=== PATIENT | male | born 2000 | race Hispanic/Latino ===

== ENCOUNTER 2025-01-25 12:44 | Emergency (ER) | payer BC, OTHER ==
[2025-01-25] MEDS ORDERED: LIDOCAINE 1% 20 ML MDV ONE (13:12)
[2025-01-25] MEDS ORDERED: LIDOCAINE 2% W/EPI 1:200,000 MPF 20 ML VIAL IM ONE (13:13)
--- NOTE | 2025-01-25 14:53 | RAD REPORT ---
EXAM: CT brain without contrast HISTORY: TRAUMA COMPARISON: None TECHNIQUE: Multiple contiguous axial images were obtained and a CT of the brain without contrast. Sag ittal and coronal reformats were performed. FINDINGS: No evidence of hydrocephalus, intracranial hemorrhage, or extra-axial fluid collection. The brain is normal in morphology. The calvarium is intact. The visualized paranasal sinuses and mastoid air cells are essentially clear . IMPRESSION: No evidence of acute intracranial abnormality. EXAM: CT of the cervical spine without contrast HISTORY: TRAUMA COMPARISON: None TECHNIQUE: Multiple contiguous axial images were obtained in a CT of the cervical spine without contr ast. Sagittal and coronal reformats were performed. FINDINGS: The vertebral bodies demonstrate normal height and alignment. No evidence of acute fracture or subluxation.. No degenerative changes are present. No prevertebral soft tissue swelling is seen. The posterior facets are well aligned. Normal alignment of the skull base with the cervical spine is seen. The lung apices are unremarkable. IMPRESSION: No evidence of acute osseous abnormality of the cervical spine.
--- NOTE | 2025-01-25 15:28 | EDPHYS ---
Physician Documentation [facility] Name: Gustavo Pop Age: 24 yrs Sex: Male : 2000 Arrival Date: 01/25/2025 Time: 12:44 Bed 9 Private MD: ED Physician Tab Mandujano HPI: 01/25 17:07 This 24 yrs old Male presents to ER via EMS with complaints of Fall Injury, rt Head Injury With LOC-Adult. 17:07 Patient presents to the ED from [facility] after rolling off the top bunk, hitting his rt head. He did sustain a laceration to the forehead, was reportedly unconscious, unclear for how long. Denies significant pain at this time, denies other acute complaints, symptoms are moderate severity, no other aggravating or alleviating factors.. Historical: - Allergies: 12:52 No Known Allergies; me1 - Home Meds: 12:52 None [Active]; me1 - PMHx: 12:52 bowel obstruction; me1 - PSHx: 12:52 bowel resection; me1 - Immunization history:: Adult Immunizations unknown, Last tetanus immunization: > 10 years ago. - Infectious Disease History:: Denies. - Social history:: Smoking status: Patient denies any tobacco usage or history of. - Family history:: not pertinent. ROS: 17:07 Constitutional: Negative for fever, chills, and weight loss, Cardiovascular: Negative rt for chest pain, palpitations, and edema, Respiratory: Negative for shortness of breath, cough, wheezing, and pleuritic chest pain, Abdomen/GI: Negative for abdominal pain, nausea, vomiting, diarrhea, and constipation, MS/Extremity: Negative for injury and deformity, 17:07 Neuro: Positive for headache, loss of consciousness, Exam: 17:07 Head/face: 4 cm linear laceration to the left side of the forehead no foreign bodies rt identified, no other external signs of trauma. 17:23 Constitutional: This is a well developed, well nourished patient who is awake, alert, rt and in no acute distress. Neck: Trachea midline, no thyromegaly or masses palpated, and no cervical lymphadenopathy. Supple, full range of motion without nuchal rigidity, or vertebral point tenderness. No Meningismus. Chest/axilla: Normal chest wall appearance and motion. Nontender with no deformity. No lesions are appreciated. Cardiovascular: Regular rate and rhythm with a normal S1 and S2. No gallops, murmurs, or rubs. Normal PMI, no JVD. No pulse deficits. Respiratory: Lungs have equal breath sounds bilaterally, clear to auscultation and percussion. No rales, rhonchi or wheezes noted. No increased work of breathing, no retractions or nasal flaring. Abdomen/GI: Soft, non-tender, with normal bowel sounds. No distension or tympany. No guarding or rebound. No evidence of tenderness throughout. Skin: Warm, dry with normal turgor. Normal color with no rashes, no lesions, and no evidence of cellulitis. MS/ Extremity: Pulses equal, no cyanosis. Neurovascular intact. Full, normal range of motion. Vital Signs: 12:50 BP 122 / 88; Pulse 85; Resp 16; Temp 98.4; Pulse Ox 99% ; Weight 65.77 kg; Height 5 ft. me1 3 in. ; Pain 6/10; 14:05 BP 121 / 82; Pulse 84; Resp 18; Pulse Ox 100% on R/A; kj2 15:38 BP 118 / 82; Pulse 80; Resp 20; Temp 98; Pulse Ox 100% on R/A; kj2 12:50 Body Mass Index 25.69 (65.77 kg, 160.02 cm) me1 12:50 Pain Scale: Adult me1 Kimberli Coma Score: 13:11 Eye Response: spontaneous(4). Motor Response: obeys commands(6). Verbal Response: kj2 oriented(5). Total: 15. Trauma Score (Adult): 13:11 Eye Response: spontaneous(1); Verbal Response: oriented(1); Motor Response: obeys kj2 commands(2); Systolic BP: > 89 mm Hg(4); Respiratory Rate: 10 to 29 per min(4); Kimberli Score: 15; Trauma Score: 12 Laceration: 17:23 Wound Repair of 4cm ( 1.6in ) subcutaneous laceration to forehead. Linear shaped.. rt Distal neuro/vascular/tendon intact. Anesthesia: Local anesthetic administered with 2 mls of 1% lidocaine w/ Epi. Wound prep: Copious irrigation. Skin closed with 6 4-0 Prolene using simple sutures and sterile technique. Dressed with 4x4's. Patient tolerated well. MDM: 12:46 Medical Screening Exam initiated rt 17:23 Differential diagnosis: Laceration, intracranial hemorrhage, skull fracture. Data rt reviewed: vital signs, nurses notes, radiologic studies. I considered the following discharge prescriptions or medication management in the emergency department Medications were administered in the Emergency Department. See MAR. Independent interpretation of the following test(s) in the Emergency Department CT Scan: My interpretation is No intracranial hemorrhage seen on my interpretation of CT scan images. Counseling: I had a detailed discussion with the patient and/or guardian regarding the historical points, exam findings, and any diagnostic results supporting the discharge/admit diagnosis, radiology results, the need for outpatient follow up, to return to the emergency department if symptoms worsen or persist or if there are any questions or concerns that arise at home. Response to treatment: the patient's symptoms have markedly improved after treatment. 01/25 12:47 Order name: CT Head C Spine; Complete Time: 14:59 rt 01/25 12:47 Order name: Dressing - Wound; Complete Time: 13:14 rt 01/25 12:47 Order name: Gloves, Sterile; Complete Time: 13:14 rt 01/25 12:47 Order name: Setup Suture Tray; Complete Time: 13:14 rt Administered Medications: 14:05 Drug: Lidocaine-Epinephrine Infiltration -1%: (1:100,000) 5 ml 20 ml Infiltration once; kj2 to bedside {Note: administered by provider.} Volume: 20 ml; Route: Infiltration; 15:39 Follow up: Response: No adverse reaction kj2 Disposition Summary: 01/25/25 15:27 Discharge Ordered Notes: Location: Home rt Problem: new rt Symptoms: have improved rt Condition: Stable rt Diagnosis - Facial laceration rt Followup: rt - With: Private Physician - When: 7 - 10 days - Reason: Staple/Suture removal Discharge Instructions: - Discharge Summary Sheet rt - Facial Laceration rt Forms: - Medication Reconciliation Form rt - Antibiotic Education rt - Prescription Opioid Use rt - Patient Portal Instructions rt - Leadership Thank You Letter rt Signatures: Dispatcher [employer] Tab Soliman MD MD rt Carol Barclay, RN RN me1 Adalgisa Garcia RN RN kj2
--- NOTE | 2025-01-25 15:28 | ER ---
Nurse's Notes [facility] Name: Gustavo Pop Age: 24 yrs Sex: Male : 2000 Arrival Date: 01/25/2025 Time: 12:44 Bed 9 Private MD: Diagnosis: Facial laceration Presentation: 01/25 12:50 Chief complaint: EMS states: toned out to assisted for fall with +LOC and laceration to me1 forehead. Patient fell off of his bunk and hit his head on the bottom bunk or the floor. He did lose consciousness. No blood thinners. Laceration to left forehead. Pain 6/10. Coronavirus screen: Vaccine status: Patient reports being unvaccinated. Ebola Screen: No symptoms or risks identified at this time. Initial Sepsis Screen: Does the patient meet any 2 criteria? No. Patient's initial sepsis screen is negative. Does the patient have a suspected source of infection? No. Patient's initial sepsis screen is negative. Risk Assessment: Do you want to hurt yourself or someone else? Patient reports no desire to harm self or others. Onset of symptoms was January 25, 2025 at 11:20. 12:50 Method Of Arrival: EMS: [facility] [place] 12:50 Acuity: AVERY 3 me1 13:12 Mechanism of Injury: Fall out of bed. kj2 15:39 Care prior to arrival: None. Trauma event details: Injury occurred: January 25, 2025. kj2 Historical: - Allergies: 12:52 No Known Allergies; me1 - Home Meds: 12:52 None [Active]; me1 - PMHx: 12:52 bowel obstruction; me1 - PSHx: 12:52 bowel resection; me1 - Immunization history:: Adult Immunizations unknown, Last tetanus immunization: > 10 years ago. - Infectious Disease History:: Denies. - Social history:: Smoking status: Patient denies any tobacco usage or history of. - Family history:: not pertinent. Screenin:[facility] ED Fall Risk Assessment (Adult) History of falling in the last 3 months, kj2 including since admission Yes- single mechanical fall (1 pt) Confusion or Disorientation No (0 pts) Intoxicated or Sedated No (0 pts) Impaired Gait No (0 pts) Mobility Assist Device Used No (0 pt) Altered Elimination No (0 pt) Score/Fall Risk Level 0 - 2 = Low Risk Maintained a safe environment, Hourly rounding (assess needs \T\ fall precautionary measures) done. Abuse screen: Denies threats or abuse. Denies injuries from another. Nutritional screening: No deficits noted. Tuberculosis screening: No symptoms or risk factors identified. Primary Survey: 13:10 NO uncontrolled hemorrhage observed. Breathing/Chest: Spontaneous respiratory effort, kj2 equal unlabored respirations, breath sounds clear bilaterally, regular pattern, symmetrical chest rise and fall. Respiratory effort: spontaneous, Breath sounds: clear, Respiratory pattern: regular, Chest inspection: symmetrical rise and fall of the chest. Circulation: No external hemorrhage present. Regular and strong central pulse, skin warm/dry/normal color. Disability Pupils are equal, round, reactive to light and accommodation. Client is alert. Exposure/Environment: All clothing and personal items were removed. Forensic evidence collection is not deemed to be indicated at this time. Items placed in patient belonging bag. 13:11 Reassessment Breathing: Spontaneous respiratory effort, equal unlabored respirations, kj2 breath sounds clear bilaterally, regular pattern with symmetrical chest rise and fall. Circulation: No external hemorrhage noted. Regular and strong central pulse, skin warm/dry/normal color. Disability: Pupils Pupils are equal, round, reactive to light and accomodation. Alert Verbal stimuli. Assessment: 13:08 General: Appears in no apparent distress. Behavior is cooperative. Pain: Complains of kj2 pain in forehead Pain currently is 6 out of 10 on a pain scale. Neuro: Level of Consciousness is awake, alert, obeys commands, Oriented to person, place, time, situation. Cardiovascular: Patient's skin is warm and dry. Respiratory: Airway is patent Respiratory effort is unlabored. GI: No signs and/or symptoms were reported involving the gastrointestinal system. : No signs and/or symptoms were reported regarding the genitourinary system. 14:04 Reassessment: Patient appears in no apparent distress at this time. Patient and/or kj2 family updated on plan of care and expected duration. Pain level reassessed. Patient is alert, oriented x 3, equal unlabored respirations, skin warm/dry/pink. 15:38 Reassessment: Patient appears in no apparent distress at this time. Patient and/or kj2 family updated on plan of care and expected duration. Pain level reassessed. Patient is alert, oriented x 3, equal unlabored respirations, skin warm/dry/pink. Vital Signs: 12:50 BP 122 / 88; Pulse 85; Resp 16; Temp 98.4; Pulse Ox 99% ; Weight 65.77 kg; Height 5 ft. me1 3 in. ; Pain 6/10; 14:05 BP 121 / 82; Pulse 84; Resp 18; Pulse Ox 100% on R/A; kj2 15:38 BP 118 / 82; Pulse 80; Resp 20; Temp 98; Pulse Ox 100% on R/A; kj2 12:50 Body Mass Index 25.69 (65.77 kg, 160.02 cm) me1 12:50 Pain Scale: Adult me1 Kimberli Coma Score: 13:11 Eye Response: spontaneous(4). Motor Response: obeys commands(6). Verbal Response: kj2 oriented(5). Total: 15. Trauma Score (Adult): 13:11 Eye Response: spontaneous(1); Verbal Response: oriented(1); Motor Response: obeys kj2 commands(2); Systolic BP: > 89 mm Hg(4); Respiratory Rate: 10 to 29 per min(4); Kimberli Score: 15; Trauma Score: 12 ED Course: 12:46 Patient arrived in ED. iw 12:46 Tab Mandujano MD is Attending Physician. rt 12:52 Triage completed. me1 12:52 Arm band placed on Patient placed in an exam room. me1 13:07 Adalgisa Garcia, RN is Primary Nurse. kj2 13:09 Patient has correct armband on for positive identification. Bed in low position. Call kj2 light in reach. Adult w/ patient. Provided Education on: call light. 13:16 CT Head C Spine In Process Unspecified. EDMS 14:42 Patient maintains SpO2 saturation greater than 95% on room air. Thermoregulation: none kj2 needed. 15:39 No provider procedures requiring assistance completed. Patient did not have IV access kj2 during this emergency room visit. Administered Medications: 14:05 Drug: Lidocaine-Epinephrine Infiltration -1%: (1:100,000) 5 ml 20 ml Infiltration once; kj2 to bedside {Note: administered by provider.} Volume: 20 ml; Route: Infiltration; 15:39 Follow up: Response: No adverse reaction kj2 Medication: 13:12 VIS not applicable for this client. kj2 Intake: 15:40 PO: 240ml (Juice); Total: 240ml. kj2 Outcome: 15:27 Discharge ordered by . rt 15:40 Discharged to [facility] kj2 15:40 Condition: stable 15:40 Discharge instructions given to patient, [facility] staff 15:57 Patient left the ED. kj2 Signatures: Dispatcher [employer] Hanh See, [place] iw Tab Mandujano MD MD rt Carol Barclay RN RN me1 Adalgisa Garcia RN RN kj2
[2025-01-25 16:54] VITALS: TEMP 98
[2025-01-25 17:02] VITALS: O2SAT 95
[2025-01-25 17:05] VITALS: BP 122/67
== END 2025-01-25 15:57 | disposition home or self-care (01) ==
LOC: ER 12:44
DX: S01.81XA Laceration without foreign body of other part of head, initial encounter (principal); W22.8XXA Striking against or struck by other objects, initial encounter
CPT/HCPCS: 12002; 70450; 72125; 99284; J2003